=== PATIENT | male | born 1990 | race Caucasian/White ===

== ENCOUNTER 2017-10-11 05:29 | Emergency (ER) | payer MEDICAID ==
[~2017-10-11] VITALS: Ht 188 cm; Wt 100.0 kg
[~2017-10-11 05:29] MED LIST: DIVA-75 MT; GABA-531 MT; HYDR-4001 MT; LEVE750T4 MT; OLAN2.5T29 MT; SERT-112 MT; [UNRECOGNIZED DRUG - OTHER] PO
[2017-10-11] MEDS ORDERED: SODIUM CHLORIDE 0.9% 1,000 ML IV ONE (07:00)
[2017-10-11] MEDS ORDERED: KETOROLAC 30MG/ML VIAL IV ONE (07:00)
[2017-10-11 07:46] LABS: BASOPHILS % 0.8 % (0.0-2.0); EOSINOPHILS % 0.8 % (0.0-5.0); HEMATOCRIT. 40.6 % (42.0-52.0); HEMOGLOBIN. 13.8 g/dL (14.0-18.0); LYMPHOCYTES % 25.6 % (20.0-50.0); MEAN CORPUSCULAR HEMOGLOBIN 31.9 pg (28.0-32.0); MEAN CORPUSCULAR VOLUME 93.7 fL (80.0-94.0); MEAN PLATELET VOLUME 8.6 fl (7.4-10.4); MONOCYTES % 9.7 % (2.0-8.0); NEUTROPHILS % 63.1 % (40.0-76.0); PLATELET 448 x1000/uL (130-400); RED BLOOD CELL COUNT 4.33 mill/uL (4.7-6.1)
[2017-10-11 07:54] LABS: CHLORIDE 106 mEq/L (98-107)
[2017-10-11 09:15] LABS: CLARITY URINE CLOUDY (CLEAR); COLOR URINE DARK YELLOW (YELLOW); KETONES URINE TRACE (NEGATIVE); LEUKOCYTE ESTERASE URINE TRACE (NEGATIVE); NITRITE URINE NEGATIVE (NEGATIVE); OCCULT BLOOD URINE NEGATIVE (NEGATIVE); PH URINE 5.5 (4.5-8.0); PROTEIN URINE NEGATIVE (NEGATIVE); SPECIFIC GRAVITY URINE 1.026 (1.005-1.030)
[2017-10-11] MEDS ORDERED: ACETAMINOPHEN 325MG TABLET PO ONE (10:00)
[2017-10-11 10:18] VITALS: BP 121/77
== END 2017-10-11 10:20 | disposition home or self-care (01) ==
LOC: ER 05:29
DX: N39.0 Urinary tract infection, site not specified (principal); G40.909 Epilepsy, unspecified, not intractable, without status epilepticus; K75.9 Inflammatory liver disease, unspecified; H54.8 Legal blindness, as defined in USA; F12.90 Cannabis use, unspecified, uncomplicated; Z88.8 Allergy status to other drugs, medicaments and biological substances; Z79.899 Other long term (current) drug therapy
CPT/HCPCS: 36415; 74176; 80048; 81003; 85025; 96374; 99285; J1885; J7030; Z7610

== ENCOUNTER 2017-10-12 12:28 | Inpatient (IN) | payer MEDICAID ==
[~2017-10-12] VITALS: Ht 182.9 cm; Wt 93.0 kg
[2017-10-12] MEDS ORDERED: SODIUM CHLORIDE 0.9% 1,000 ML IV ONE (14:13)
[2017-10-12] MEDS ORDERED: ACETAMINOPHEN 325MG TABLET PO STA (14:13)
[2017-10-12] MEDS ORDERED: ONDANSETRON HCL 4MG/2ML INJ IV STA (14:13)
[2017-10-12] MEDS ORDERED: KETOROLAC 30MG/ML VIAL IV STA (14:13)
[2017-10-12] MEDS ORDERED: SODIUM CHLORIDE 0.9% 1000ML BAG (SEPSIS BOLUS) IV ONE (14:15)
[2017-10-12] MEDS ORDERED: PIPERACILLIN/TAZ 3.375G PREMIX 50 ML IV ONE (14:15)
[2017-10-12] MEDS ORDERED: VANCOMYCIN 1 G PREMIX 200 ML IV ONE (14:15)
[2017-10-12] MEDS ORDERED: KETOROLAC 30MG/ML VIAL IV ONE (15:15)
[2017-10-12 15:33] LABS: PROTHROMBIN TIME 10.2 sec (9.1-11.1)
[2017-10-12 15:34] LABS: CHLORIDE 107 mEq/L (98-107)
[2017-10-12 15:40] LABS: ETHANOL BLOOD < 10 mg/dL
[2017-10-12 15:43] LABS: CREATINE KINASE 317 IU/L (39-308)
[2017-10-12 15:48] LABS: AMMONIA 83 uMol/L (<32)
[2017-10-12 15:50] LABS: CARBAMAZEPINE < 0.5 ug/mL (4-12); PHENOBARBITAL < 2.1 ug/mL (15.0-40.0); VALPROIC ACID < 3.0 ug/mL (50-100)
[2017-10-12] MEDS ORDERED: LORAZEPAM 2MG/ML CPJ IV ONE (16:00)
[2017-10-12 18:45] LABS: CLARITY URINE TURBID (CLEAR); COLOR URINE DARK YELLOW (YELLOW); KETONES URINE TRACE (NEGATIVE); LEUKOCYTE ESTERASE URINE TRACE (NEGATIVE); NITRITE URINE NEGATIVE (NEGATIVE); OCCULT BLOOD URINE NEGATIVE (NEGATIVE); PROTEIN URINE TRACE (NEGATIVE); SPECIFIC GRAVITY URINE 1.031 (1.005-1.030)
[2017-10-12 18:59] LABS: *AMPHETAMINES SCREEN URINE NEGATIVE (NEGATIVE); *BARBITURATES SCREEN URINE NEGATIVE (NEGATIVE); *BENZODIAZEPINES SCREEN URINE NEGATIVE (NEGATIVE); *COCAINE SCREEN URINE NEGATIVE (NEGATIVE); METHADONE URINE SCREEN NEGATIVE (NEGATIVE); OPIATES URINE SCREEN NEGATIVE (NEGATIVE)
[2017-10-12 19:00] LABS: CANNABINOID URINE SCREEN PRESUMTIVE POSITIVE (NEGATIVE); PHENCYCLIDINE URINE SCREEN NEGATIVE (NEGATIVE)
[2017-10-12 22:00] VITALS: BP 116/72
[2017-10-12] MEDS ORDERED: CLONIDINE 0.1MG TABLET PO PRN (23:45)
[2017-10-12] MEDS ORDERED: ACETAMINOPHEN 325MG TABLET PO PRN (23:45)
[2017-10-12] MEDS ORDERED: MORPHINE SULFATE 4 MG/ML CPJ (NOT FOR IM USE) IV PRN (23:45)
[2017-10-12] MEDS ORDERED: ONDANSETRON HCL 4MG/2ML INJ IV PRN (23:45)
[2017-10-13] VITALS: BP 116/72
[2017-10-13] MEDS: SERTRALINE HCL 100MG TABLET PO SCH ×2 (01:03→20:45)
[2017-10-13] MEDS: SODIUM CHLORIDE 0.9% 1,000 ML IV SCH ×2 (01:03→13:05)
[2017-10-13] MEDS: VANCOMYCIN 1500MG in DEXTROSE 5% WATER 250ML IV SCH ×3 (02:56→18:05)
[2017-10-13] MEDS: OLANZAPINE 2.5MG TABLET PO SCH ×2 (02:56→20:43)
[2017-10-13] MEDS: GABAPENTIN 300MG CAPSULE PO SCH ×3 (05:11→21:02)
[2017-10-13] MEDS ORDERED: CLONIDINE 0.1MG TABLET PO PRN (05:45)
[2017-10-13] MEDS: HYDROCODONE/ACETAMINOPHEN 5/325MG TABLET PO PRN ×2 (06:06→18:01)
[2017-10-13 08:00] VITALS: BP 101/60
[2017-10-13] MEDS: LEVETIRACETAM 500MG TABLET PO SCH ×2 (08:57→20:43)
[2017-10-13] MEDS: ENOXAPARIN 40MG/0.4ML SYR SUBCUT SCH (08:59)
[2017-10-13] MEDS ORDERED: DIVALPROEX SODIUM 500MG DR TABLET PO SCH (09:00)
[2017-10-13 12:00] VITALS: BP 106/64
[2017-10-13 16:11] VITALS: BP 124/74
[2017-10-13] MEDS: DIVALPROEX SODIUM 500MG DR TABLET PO SCH (18:00)
[2017-10-13 18:07] LABS: BASOPHILS % 2.5 % (0.0-2.0); EOSINOPHILS % 3.6 % (0.0-5.0); HEMATOCRIT. 39.3 % (42.0-52.0); HEMOGLOBIN. 13.3 g/dL (14.0-18.0); LYMPHOCYTES % 36.1 % (20.0-50.0); MEAN CORPUSCULAR HEMOGLOBIN 32.1 pg (28.0-32.0); MEAN CORPUSCULAR VOLUME 94.6 fL (80.0-94.0); MEAN PLATELET VOLUME 8.8 fl (7.4-10.4); MONOCYTES % 14.7 % (2.0-8.0); NEUTROPHILS % 43.1 % (40.0-76.0); PLATELET 404 x1000/uL (130-400); RED BLOOD CELL COUNT 4.15 mill/uL (4.7-6.1); RED CELL DISTRIBUTION WIDTH 14.2 % (11.6-14.6)
[2017-10-13 18:16] LABS: CHLORIDE 111 mEq/L (98-107)
[2017-10-13 20:00] VITALS: BP 117/77
[2017-10-14] VITALS: BP 120/70
[2017-10-14 04:00] VITALS: BP 102/66
[2017-10-14] MEDS: VANCOMYCIN 1500MG in DEXTROSE 5% WATER 250ML IV SCH ×3 (04:01→18:29)
[2017-10-14] MEDS: SODIUM CHLORIDE 0.9% 1,000 ML IV SCH ×2 (04:04→15:45)
[2017-10-14] MEDS: GABAPENTIN 300MG CAPSULE PO SCH ×3 (05:56→21:43)
[2017-10-14 08:20] VITALS: BP 113/69
[2017-10-14] MEDS: LEVETIRACETAM 500MG TABLET PO SCH ×2 (09:03→21:43)
[2017-10-14] MEDS: DIVALPROEX SODIUM 500MG DR TABLET PO SCH ×2 (09:03→21:43)
[2017-10-14] MEDS: ENOXAPARIN 40MG/0.4ML SYR SUBCUT SCH (09:04)
[2017-10-14 12:03] VITALS: BP 113/67
[2017-10-14] MEDS: CEFEPIME 2,000 MG in DEXT 5% WATER 100 ML IV SCH ×2 (12:10→23:06)
[2017-10-14] MEDS: HYDROCODONE/ACETAMINOPHEN 5/325MG TABLET PO PRN ×2 (13:02→18:58)
[2017-10-14 16:09] VITALS: BP 105/73
[2017-10-14 20:00] VITALS: BP 113/88
[2017-10-14] MEDS: OLANZAPINE 2.5MG TABLET PO SCH (21:43)
[2017-10-14] MEDS: SERTRALINE HCL 100MG TABLET PO SCH (21:44)
[2017-10-15] VITALS: BP 117/79
[2017-10-15] MEDS: VANCOMYCIN 1500MG in DEXTROSE 5% WATER 250ML IV SCH ×3 (02:41→10:00)
[2017-10-15] MEDS: HYDROCODONE/ACETAMINOPHEN 5/325MG TABLET PO PRN (03:20)
[2017-10-15 04:00] VITALS: BP 104/63
[2017-10-15] MEDS: GABAPENTIN 300MG CAPSULE PO SCH ×3 (05:31→20:55)
[2017-10-15 08:00] VITALS: BP 114/72
[2017-10-15] MEDS: DIVALPROEX SODIUM 500MG DR TABLET PO SCH ×2 (09:02→20:57)
[2017-10-15] MEDS: LEVETIRACETAM 500MG TABLET PO SCH ×2 (09:02→20:55)
[2017-10-15] MEDS: ENOXAPARIN 40MG/0.4ML SYR SUBCUT SCH (09:03)
[2017-10-15 12:00] VITALS: BP 123/72
[2017-10-15] MEDS: CLINDAMYCIN HCL 150MG CAPSULE PO SCH ×2 (12:36→18:19)
[2017-10-15] MEDS: LEVOFLOXACIN 250MG TABLET PO SCH (12:36)
[2017-10-15] MEDS: SILVER SULFADIAZINE 1% CREAM 25GM TOP SCH (14:56)
[2017-10-15 16:00] VITALS: BP 132/76
[2017-10-15] MEDS ORDERED: DIPHENHYDRAMINE 50MG CAPSULE PO NR (19:45)
[2017-10-15 20:00] VITALS: BP 103/64
[2017-10-15] MEDS: SERTRALINE HCL 100MG TABLET PO SCH (20:56)
[2017-10-15] MEDS: FAMOTIDINE 20MG TABLET PO SCH (20:57)
[2017-10-15] MEDS: OLANZAPINE 2.5MG TABLET PO SCH (20:58)
[2017-10-15] MEDS: LACTULOSE 20G/30ML UDC PO SCH (20:59)
[2017-10-16] VITALS: BP 113/62
[2017-10-16 04:00] VITALS: BP 111/68
[2017-10-16] MEDS: GABAPENTIN 300MG CAPSULE PO SCH (06:25)
[2017-10-16] MEDS: CLINDAMYCIN HCL 150MG CAPSULE PO SCH ×3 (06:25→09:32)
[2017-10-16] MEDS: LACTULOSE 20G/30ML UDC PO SCH (06:25)
[2017-10-16 08:00] VITALS: BP 110/79
[2017-10-16] MEDS: ENOXAPARIN 40MG/0.4ML SYR SUBCUT SCH (09:00)
[2017-10-16] MEDS: DIVALPROEX SODIUM 500MG DR TABLET PO SCH (09:23)
[2017-10-16] MEDS: SILVER SULFADIAZINE 1% CREAM 25GM TOP SCH (09:23)
[2017-10-16] MEDS: FAMOTIDINE 20MG TABLET PO SCH (09:23)
[2017-10-16] MEDS: LEVETIRACETAM 500MG TABLET PO SCH (09:23)
[2017-10-16 10:34] LABS: BASOPHILS % 0.1 % (0.0-2.0); EOSINOPHILS % 1.1 % (0.0-5.0); HEMATOCRIT. 42.1 % (42.0-52.0); HEMOGLOBIN. 14.3 g/dL (14.0-18.0); LYMPHOCYTES % 13.4 % (20.0-50.0); MEAN CORPUSCULAR HEMOGLOBIN 32.2 pg (28.0-32.0); MEAN CORPUSCULAR VOLUME 94.6 fL (80.0-94.0); MEAN PLATELET VOLUME 8.8 fl (7.4-10.4); NEUTROPHILS % 81.4 % (40.0-76.0); PLATELET 383 x1000/uL (130-400); RED BLOOD CELL COUNT 4.45 mill/uL (4.7-6.1); RED CELL DISTRIBUTION WIDTH 13.9 % (11.6-14.6)
[2017-10-16 11:11] LABS: CHLORIDE 101 mEq/L (98-107)
[2017-10-16 12:00] VITALS: BP 120/86
[2017-10-16] MEDS: HYDROCODONE/ACETAMINOPHEN 5/325MG TABLET PO PRN (12:15)
[2017-10-16] MEDS: LEVOFLOXACIN 250MG TABLET PO SCH (12:15)
[2017-10-16 16:00] VITALS: BP 116/76
[2017-10-16 17:10] VITALS: BP 120/86
== END 2017-10-16 17:37 | disposition home health service (06) | DRG 720 ==
LOC: ER 12:58 → EDBEDREQ 14:18 → 8WST 16:07 → EDBEDREQSVC 16:10 → EDBEDREQ 16:10 → ENRESERV 19:41
PROVIDERS: ADMIT Internal Medicine; ATTEND Internal Medicine
DX: A41.9 Sepsis, unspecified organism (principal); L97.319 Non-pressure chronic ulcer of right ankle with unspecified severity; L03.115 Cellulitis of right lower limb; F12.90 Cannabis use, unspecified, uncomplicated; F17.210 Nicotine dependence, cigarettes, uncomplicated; G40.909 Epilepsy, unspecified, not intractable, without status epilepticus; R62.50 Unspecified lack of expected normal physiological development in childhood; I87.8 Other specified disorders of veins; Z82.49 Family history of ischemic heart disease and other diseases of the circulatory system; Z91.19 Patient's noncompliance with other medical treatment and regimen; Z88.9 Allergy status to unspecified drugs, medicaments and biological substances; Z91.14 Patient's other noncompliance with medication regimen
CPT/HCPCS: 36415; 71045; 73600; 80048; 80053; 80156; 80165; 80184; 80185; 80305; 81003; 82140; 82550; 83605; 84443; 84484; 85025; 85610; 87040; 87070; 87077; 87086; 87186; 87205; 93005; 96365; 96367; 96375; 97022; 97161; 99285; C1893; G0482; J0692; J1650; J1885; J2060; J2270; J2405; J2543; J3370; J7030; J7040; J7060; Q0163

== ENCOUNTER 2018-01-10 12:10 | Inpatient (IN) | payer MEDICAID ==
[~2018-01-10] VITALS: Ht 182.9 cm; Wt 83.9 kg
[2018-01-10] MEDS ORDERED: FAMOTIDINE 20MG/2ML VIAL IV STA (13:01)
[2018-01-10] MEDS ORDERED: SODIUM CHLORIDE 0.9% 1,000 ML IV ONE (13:01)
[2018-01-10] MEDS ORDERED: KETOROLAC 30MG/ML VIAL IV ONE (13:15)
[2018-01-10 13:30] LABS: BASOPHILS % 0.5 % (0.0-2.0); EOSINOPHILS % 0.2 % (0.0-5.0); HEMATOCRIT. 44.5 % (42.0-52.0); LYMPHOCYTES % 11.5 % (20.0-50.0); MEAN CORPUSCULAR HEMOGLOBIN 31.4 pg (28.0-32.0); MEAN PLATELET VOLUME 8.2 fl (7.4-10.4); MONOCYTES % 8.7 % (2.0-8.0); NEUTROPHILS % 79.1 % (40.0-76.0); PLATELET 481 x1000/uL (130-400); RED BLOOD CELL COUNT 4.79 mill/uL (4.7-6.1)
[2018-01-10 13:35] LABS: CHLORIDE 101 mEq/L (98-107)
[2018-01-10 13:36] LABS: PROTHROMBIN TIME 10.3 sec (9.1-11.1)
[2018-01-10] MEDS ORDERED: LORAZEPAM 2MG/ML CPJ IV ONE (13:45)
[2018-01-10] MEDS ORDERED: LORAZEPAM 2MG/ML CPJ IM ONE (14:00)
[2018-01-10] MEDS ORDERED: ONDANSETRON HCL 4MG/2ML INJ ONE (14:03)
[2018-01-10] MEDS ORDERED: SODIUM CHLORIDE 0.9% 1000ML BAG (SEPSIS BOLUS) IV ONE (15:30)
[2018-01-10] MEDS ORDERED: PIPERACILLIN/TAZ 3.375G PREMIX 50 ML IV ONE (16:00)
[2018-01-10 16:15] LABS: CLARITY URINE TURBID (CLEAR); COLOR URINE ORANGE (YELLOW); KETONES URINE TRACE (NEGATIVE); LEUKOCYTE ESTERASE URINE TRACE (NEGATIVE); NITRITE URINE NEGATIVE (NEGATIVE); OCCULT BLOOD URINE 3+ (NEGATIVE); PH URINE 5.5 (4.5-8.0); PROTEIN URINE 2+ (NEGATIVE); SPECIFIC GRAVITY URINE 1.012 (1.005-1.030); UROBILINOGEN URINE 0.2 E.U./dL (0.2-1.0)
[2018-01-10] MEDS ORDERED: LEVOFLOXACIN 500MG PREMIX 100 ML IV ONE (16:45)
[2018-01-10 22:25] VITALS: BP 103/64
[2018-01-10] MEDS ORDERED: MEDICATION NOT ON FORMULARY EA (Gabapentin 1 CAP) MT SCH (23:30)
[2018-01-10] MEDS ORDERED: ACETAMINOPHEN PO SCH (23:30)
[2018-01-11] VITALS: BP_SYST 110; BP_SYST 146; BP_DIAS 56; BP_DIAS 71
[2018-01-11] MEDS ORDERED: ACETAMINOPHEN 325MG TABLET PO PRN (00:45)
[2018-01-11] MEDS: HYDROCODONE/ACETAMINOPHEN 10/325MG TABLET PO PRN ×4 (01:27→22:49)
[2018-01-11] MEDS: METOCLOPRAMIDE HCL 10MG/2ML VIAL IV PRN ×3 (03:05→20:59)
[2018-01-11 04:00] VITALS: BP 121/62
[2018-01-11] MEDS: GABAPENTIN 300MG CAPSULE PO SCH ×3 (05:04→22:48)
[2018-01-11 08:00] VITALS: BP 117/66
[2018-01-11] MEDS: PIPERACILLIN/TAZ 3.375G PREMIX 50 ML IV SCH ×3 (08:16→17:56)
[2018-01-11] MEDS: LEVETIRACETAM 500MG TABLET PO SCH ×2 (08:16→22:48)
[2018-01-11] MEDS: DIVALPROEX SODIUM 250MG DR TABLET PO SCH ×2 (08:16→22:48)
[2018-01-11] MEDS: ALPRAZOLAM 0.5 MG TABLET PO PRN (08:16)
[2018-01-11] MEDS ORDERED: MEDICATION NOT ON FORMULARY EA (Levetiracetam (Keppra) 2 TAB) MT SCH (09:00)
[2018-01-11] MEDS ORDERED: VANCOMYCIN 1500MG in DEXTROSE 5% WATER 250ML IV SCH (09:00)
[2018-01-11] MEDS ORDERED: DIVALPROEX SODIUM MT SCH (09:00)
[2018-01-11 12:00] VITALS: BP 114/79
[2018-01-11] MEDS: ONDANSETRON HCL 4MG/2ML INJ IV PRN (13:45)
[2018-01-11 15:41] LABS: BASOPHILS % 0.6 % (0.0-2.0); EOSINOPHILS % 0.5 % (0.0-5.0); HEMATOCRIT. 41.4 % (42.0-52.0); HEMOGLOBIN. 13.7 g/dL (14.0-18.0); MEAN CORPUSCULAR HEMOGLOBIN 31.2 pg (28.0-32.0); MEAN CORPUSCULAR VOLUME 94.1 fL (80.0-94.0); MEAN PLATELET VOLUME 8.5 fl (7.4-10.4); MONOCYTES % 14.9 % (2.0-8.0); PLATELET 441 x1000/uL (130-400); RED CELL DISTRIBUTION WIDTH 15.6 % (11.6-14.6)
[2018-01-11 16:00] VITALS: BP 106/84
[2018-01-11] MEDS ORDERED: VANCOMYCIN 1250MG in DEXTROSE 5% WATER 250ML IV SCH (18:00)
[2018-01-11 20:00] VITALS: BP 128/80
[2018-01-11] MEDS ORDERED: OLANZAPINE MT SCH (21:00)
[2018-01-11] MEDS: OLANZAPINE 5MG TABLET PO SCH (22:48)
[2018-01-11] MEDS: SERTRALINE HCL 100MG TABLET PO SCH (22:54)
[2018-01-12] VITALS: BP 119/71
[2018-01-12] MEDS: PIPERACILLIN/TAZ 3.375G PREMIX 50 ML IV SCH ×4 (01:28→17:14)
[2018-01-12 04:00] VITALS: BP 122/71
[2018-01-12 06:58] LABS: BASOPHILS % 0.2 % (0.0-2.0); EOSINOPHILS % 1.1 % (0.0-5.0); HEMATOCRIT. 39.6 % (42.0-52.0); HEMOGLOBIN. 12.9 g/dL (14.0-18.0); LYMPHOCYTES % 28.8 % (20.0-50.0); MEAN CORPUSCULAR HEMOGLOBIN 30.9 pg (28.0-32.0); MEAN CORPUSCULAR VOLUME 95.1 fL (80.0-94.0); MONOCYTES % 14.1 % (2.0-8.0); NEUTROPHILS % 55.8 % (40.0-76.0); RED BLOOD CELL COUNT 4.16 mill/uL (4.7-6.1); RED CELL DISTRIBUTION WIDTH 15.5 % (11.6-14.6)
[2018-01-12] MEDS: GABAPENTIN 300MG CAPSULE PO SCH ×3 (07:14→23:02)
[2018-01-12 08:00] VITALS: BP 112/82
[2018-01-12] MEDS: DIVALPROEX SODIUM 250MG DR TABLET PO SCH ×2 (08:47→23:02)
[2018-01-12] MEDS: METOCLOPRAMIDE HCL 10MG/2ML VIAL IV PRN ×2 (08:47→15:48)
[2018-01-12] MEDS: LEVETIRACETAM 500MG TABLET PO SCH ×2 (08:47→23:02)
[2018-01-12 09:48] LABS: MEAN PLATELET VOLUME 9.1 fl (7.4-10.4); PLATELET 364 x1000/uL (130-400)
[2018-01-12 12:00] VITALS: BP 115/73
[2018-01-12] MEDS: ONDANSETRON HCL 4MG/2ML INJ IV PRN (12:13)
[2018-01-12 16:00] VITALS: BP 145/93
[2018-01-12] MEDS: DOCUSATE SODIUM 250MG CAPSULE PO SCH (17:14)
[2018-01-12 20:00] VITALS: BP 119/78
[2018-01-12] MEDS ORDERED: DEXT 5%/0.45% NACL 1000ML 1,000 ML IV SCH (20:30)
[2018-01-12] MEDS: OLANZAPINE 5MG TABLET PO SCH (23:02)
[2018-01-12] MEDS: SERTRALINE HCL 100MG TABLET PO SCH (23:03)
[2018-01-12] MEDS: HYDROCODONE/ACETAMINOPHEN 10/325MG TABLET PO PRN (23:04)
[2018-01-13] VITALS: BP 98/71
[2018-01-13] MEDS: PIPERACILLIN/TAZ 3.375G PREMIX 50 ML IV SCH
[2018-01-13 04:00] VITALS: BP 106/67
[2018-01-13] MEDS: GABAPENTIN 300MG CAPSULE PO SCH ×3 (06:33→21:00)
[2018-01-13 08:00] VITALS: BP 126/75
[2018-01-13] MEDS: DOCUSATE SODIUM 250MG CAPSULE PO SCH ×2 (09:17→17:29)
[2018-01-13 10:04] LABS: BASOPHILS % 0.8 % (0.0-2.0); EOSINOPHILS % 0.8 % (0.0-5.0); HEMATOCRIT. 42.8 % (42.0-52.0); HEMOGLOBIN. 14.1 g/dL (14.0-18.0); LYMPHOCYTES % 32.9 % (20.0-50.0); MEAN CORPUSCULAR VOLUME 93.9 fL (80.0-94.0); MEAN PLATELET VOLUME 8.7 fl (7.4-10.4); MONOCYTES % 14.4 % (2.0-8.0); NEUTROPHILS % 51.1 % (40.0-76.0); PLATELET 342 x1000/uL (130-400); RED BLOOD CELL COUNT 4.55 mill/uL (4.7-6.1); RED CELL DISTRIBUTION WIDTH 15.6 % (11.6-14.6)
[2018-01-13] MEDS: LEVETIRACETAM 500MG TABLET PO SCH ×2 (10:34→20:56)
[2018-01-13] MEDS: DIVALPROEX SODIUM 250MG DR TABLET PO SCH ×2 (10:34→20:57)
[2018-01-13 12:00] VITALS: BP 133/95
[2018-01-13] MEDS ORDERED: MEROPENEM 1,000 MG in SODIUM CHLORIDE 0.9% 100 ML IV SCH (15:00)
[2018-01-13 16:00] VITALS: BP 139/82
[2018-01-13 20:00] VITALS: BP 110/60
[2018-01-13] MEDS: SERTRALINE HCL 100MG TABLET PO SCH (20:56)
[2018-01-13] MEDS: OLANZAPINE 5MG TABLET PO SCH (20:57)
[2018-01-13] MEDS: ALPRAZOLAM 0.5 MG TABLET PO PRN (20:57)
[2018-01-14] VITALS: BP 108/77
[2018-01-14] MEDS: GABAPENTIN 300MG CAPSULE PO SCH ×3 (06:01→21:37)
[2018-01-14 08:00] VITALS: BP 120/73
[2018-01-14] MEDS: LEVETIRACETAM 500MG TABLET PO SCH ×2 (08:48→21:36)
[2018-01-14] MEDS: DOCUSATE SODIUM 250MG CAPSULE PO SCH ×2 (08:48→18:19)
[2018-01-14] MEDS: DIVALPROEX SODIUM 250MG DR TABLET PO SCH ×2 (09:20→21:36)
[2018-01-14 12:00] VITALS: BP 142/85
[2018-01-14 16:00] VITALS: BP 141/75
[2018-01-14 18:36] LABS: BASOPHILS % 1.4 % (0.0-2.0); EOSINOPHILS % 1.1 % (0.0-5.0); HEMATOCRIT. 42.5 % (42.0-52.0); HEMOGLOBIN. 14.2 g/dL (14.0-18.0); LYMPHOCYTES % 45.2 % (20.0-50.0); MEAN CORPUSCULAR HEMOGLOBIN 31.9 pg (28.0-32.0); MEAN CORPUSCULAR VOLUME 95.4 fL (80.0-94.0); MEAN PLATELET VOLUME 9.2 fl (7.4-10.4); MONOCYTES % 12.1 % (2.0-8.0); NEUTROPHILS % 40.2 % (40.0-76.0); PLATELET 295 x1000/uL (130-400); RED BLOOD CELL COUNT 4.46 mill/uL (4.7-6.1); RED CELL DISTRIBUTION WIDTH 15.3 % (11.6-14.6)
[2018-01-14 20:00] VITALS: BP 121/84
[2018-01-14] MEDS: SERTRALINE HCL 100MG TABLET PO SCH (21:36)
[2018-01-14] MEDS: OLANZAPINE 5MG TABLET PO SCH (21:37)
[2018-01-14] MEDS: HYDROCODONE/ACETAMINOPHEN 10/325MG TABLET PO PRN (22:52)
[2018-01-15] VITALS: BP 117/81
[2018-01-15 04:00] VITALS: BP 97/58
[2018-01-15 08:00] VITALS: BP 133/91
[2018-01-15] MEDS: DOCUSATE SODIUM 250MG CAPSULE PO SCH (09:07)
[2018-01-15] MEDS: DIVALPROEX SODIUM 250MG DR TABLET PO SCH (09:08)
[2018-01-15] MEDS: LEVETIRACETAM 500MG TABLET PO SCH (09:08)
[2018-01-15 12:00] VITALS: BP 126/97
[2018-01-15] MEDS: GABAPENTIN 300MG CAPSULE PO SCH (13:04)
[2018-01-15] MEDS: HYDROCODONE/ACETAMINOPHEN 10/325MG TABLET PO PRN (13:32)
[2018-01-15 13:36] LABS: CHLORIDE 102 mEq/L (98-107)
[2018-01-15 14:45] VITALS: BP 123/97
[2018-01-15 16:00] VITALS: BP 138/97
== END 2018-01-15 19:15 | disposition home or self-care (01) | DRG 720 ==
LOC: ER 12:10 → EDBEDREQ 13:45 → 6EST 16:13 → EDBEDREQTM 16:15 → EDBEDREQ 16:15 → ENRESERV 20:38
PROVIDERS: ADMIT Internal Medicine; ATTEND Internal Medicine
DX: A41.9 Sepsis, unspecified organism (principal); N17.0 Acute kidney failure with tubular necrosis; A04.9 Bacterial intestinal infection, unspecified; F32.9 Major depressive disorder, single episode, unspecified; G40.909 Epilepsy, unspecified, not intractable, without status epilepticus; N39.0 Urinary tract infection, site not specified; F12.90 Cannabis use, unspecified, uncomplicated; Z66 Do not resuscitate; Z82.49 Family history of ischemic heart disease and other diseases of the circulatory system; Z79.899 Other long term (current) drug therapy; Z53.20 Procedure and treatment not carried out because of patient's decision for unspecified reasons; Z88.8 Allergy status to other drugs, medicaments and biological substances
CPT/HCPCS: 36415; 71045; 74176; 80048; 82962; 83605; 87077; 87186; 96365; 96366; 96367; 96372; 96375; 99291; J1885; J1956; J2060; J2185; J2405; J2543; J2765; J3370; J3490; J7030; J7040; J7050; J7060

== ENCOUNTER 2019-04-05 19:08 | Emergency (ER) | payer MEDICAID ==
[~2019-04-05] VITALS: Ht 188 cm; Wt 96.0 kg
[2019-04-05] MEDS ORDERED: HYDROCODONE/ACETAMINOPHEN 5/325MG TABLET PO ONE (19:45)
[2019-04-05] MEDS ORDERED: IBUPROFEN 800MG TABLET PO ONE (19:45)
[2019-04-05] MEDS ORDERED: CARISOPRODOL 350 MG TABLET PO ONE (20:00)
[2019-04-06 01:13] VITALS: BP 121/84
== END 2019-04-06 01:18 | disposition home or self-care (01) ==
LOC: ER 19:08
DX: S80.12XA Contusion of left lower leg, initial encounter (principal); F12.10 Cannabis abuse, uncomplicated; Z98.890 Other specified postprocedural states; Z88.8 Allergy status to other drugs, medicaments and biological substances; Z79.899 Other long term (current) drug therapy; V89.2XXA Person injured in unspecified motor-vehicle accident, traffic, initial encounter; Y93.89 Activity, other specified; Y92.89 Other specified places as the place of occurrence of the external cause; Y99.8 Other external cause status
CPT/HCPCS: 73590; 99284

== ENCOUNTER 2020-07-27 19:44 | Emergency (ER) | payer MEDICAID ==
[~2020-07-27] VITALS: Ht 188 cm; Wt 100.0 kg
[~2020-07-27 19:44] MED LIST changes: -GABA-531 MT; +GABA-532 MT
[2020-07-27 19:46] VITALS: BP 127/71
== END 2020-07-28 01:53 | disposition left against medical advice (07) ==
LOC: ER 19:53
DX: S81.801A Unspecified open wound, right lower leg, initial encounter (principal); M79.604 Pain in right leg; Z88.8 Allergy status to other drugs, medicaments and biological substances; X58.XXXA Exposure to other specified factors, initial encounter; Y93.9 Activity, unspecified; Y92.9 Unspecified place or not applicable; R56.9 Unspecified convulsions
CPT/HCPCS: 99283

== ENCOUNTER 2020-07-28 02:05 | Emergency (ER) | payer MEDICAID ==
[~2020-07-28] VITALS: Ht 182.9 cm; Wt 90.0 kg
[2020-07-28 02:08] VITALS: BP 125/80
== END 2020-07-28 04:33 | disposition left against medical advice (07) ==
LOC: ER 02:16
DX: M79.671 Pain in right foot (principal); R56.9 Unspecified convulsions; Z88.8 Allergy status to other drugs, medicaments and biological substances
CPT/HCPCS: 99283

== ENCOUNTER 2020-10-09 04:49 | Emergency (ER) | payer MEDICAID ==
[~2020-10-09] VITALS: Ht 188 cm; Wt 104.0 kg
[2020-10-09 04:52] VITALS: BP 136/86
[2020-10-09] MEDS ORDERED: TOPUD PO (05:43)
== END 2020-10-09 05:52 | disposition left against medical advice (07) ==
LOC: ER 04:49
DX: M79.605 Pain in left leg (principal); R56.9 Unspecified convulsions; Z88.8 Allergy status to other drugs, medicaments and biological substances
CPT/HCPCS: 99283

== ENCOUNTER 2020-10-09 06:39 | Emergency (ER) | payer MEDICAID ==
[~2020-10-09] VITALS: Ht 180.3 cm; Wt 104.0 kg
[~2020-10-09 06:39] MED LIST changes: +TOPUD PO
[2020-10-09 06:44] VITALS: BP 138/88
== END 2020-10-09 07:09 | disposition left against medical advice (07) ==
LOC: ER 06:39
DX: M79.662 Pain in left lower leg (principal); M79.661 Pain in right lower leg; R56.9 Unspecified convulsions; Z88.8 Allergy status to other drugs, medicaments and biological substances
CPT/HCPCS: 99281; 99283

== ENCOUNTER 2020-12-06 13:09 | Emergency (ER) | payer MEDICAID ==
[~2020-12-06] VITALS: Ht 182.9 cm; Wt 95.0 kg
[2020-12-06] MEDS ORDERED: IBUPROFEN 800MG TABLET PO ONE (13:15)
[2020-12-06] MEDS ORDERED: ACETAMINOPHEN 500MG TABLET PO ONE (13:15)
[2020-12-06] MEDS ORDERED: T3 PO (14:29)
[2020-12-06 14:44] VITALS: BP 135/66
== END 2020-12-06 14:47 | disposition home or self-care (01) ==
LOC: ER 13:09
DX: S63.91XA Sprain of unspecified part of right wrist and hand, initial encounter (principal); F12.10 Cannabis abuse, uncomplicated; Z88.8 Allergy status to other drugs, medicaments and biological substances; W01.0XXA Fall on same level from slipping, tripping and stumbling without subsequent striking against object, initial encounter; Y93.89 Activity, other specified; Y92.018 Other place in single-family (private) house as the place of occurrence of the external cause
CPT/HCPCS: 29125; 73110; 73130; 99284

== ENCOUNTER 2020-12-10 19:35 | Inpatient (IN) | payer MEDICAID, OTHER ==
[~2020-12-10] VITALS: Ht 188 cm; Wt 124.9 kg
[~2020-12-10 19:35] MED LIST changes: +T3 PO
[2020-12-10] MEDS ORDERED: PIPERACILLIN/TAZ 3.375G PREMIX 50 ML IV ONE (23:15)
[2020-12-10] MEDS ORDERED: SODIUM CHLORIDE 0.9% 1000ML BAG (SEPSIS BOLUS) IV ONE (23:15)
[2020-12-10] MEDS ORDERED: VANCOMYCIN 1 G PREMIX 200 ML IV ONE (23:15)
[2020-12-10] MEDS ORDERED: KETOROLAC 15MG/ML VIAL IV ONE (23:45)
[2020-12-11 00:07] LABS: BASOPHILS % 0.9 % (0.0-2.0); EOSINOPHILS % 4.2 % (0.0-5.0); HEMATOCRIT. 34.8 % (42.0-52.0); HEMOGLOBIN. 11.7 g/dL (14.0-18.0); LYMPHOCYTES % 46.8 % (20.0-50.0); MEAN CORPUSCULAR HEMOGLOBIN 32.1 pg (28.0-32.0); MEAN CORPUSCULAR VOLUME 95.6 fL (80.0-94.0); MEAN PLATELET VOLUME 8.1 fl (7.4-10.4); MONOCYTES % 12.3 % (2.0-8.0); NEUTROPHILS % 35.8 % (40.0-76.0); PLATELET 472 x1000/uL (130-400); RED BLOOD CELL COUNT 3.64 mill/uL (4.7-6.1); RED CELL DISTRIBUTION WIDTH 16.2 % (11.6-14.6)
[2020-12-11 00:13] LABS: CHLORIDE 114 mEq/L (98-107)
[2020-12-11 00:18] LABS: ETHANOL BLOOD < 10 mg/dL
[2020-12-11] MEDS ORDERED: ONDANSETRON HCL 4MG/2ML INJ IV STA (02:34)
[2020-12-11] MEDS ORDERED: MORPHINE SULFATE 4 MG/ML CPJ (NOT FOR IM USE) IV STA (02:34)
[2020-12-11] MEDS ORDERED: SODIUM CHLORIDE 0.9% 1,000 ML IV ONE (02:45)
[2020-12-11] MEDS ORDERED: DIPHENHYDRAMINE 50MG/ML VIAL IV ONE (02:45)
[2020-12-11] MEDS ORDERED: MORPHINE SULFATE 2 MG/ML CPJ (NOT FOR IM USE) IV STA (03:08)
[2020-12-11 08:00] VITALS: BP 121/74
[2020-12-11] MEDS ORDERED: IPRATROPIUM/ALBUTEROL 0.5-3(2.5)MG/3ML NEB HHN PRN (09:15)
[2020-12-11] MEDS ORDERED: ONDANSETRON HCL 4MG/2ML INJ IV PRN (09:15)
[2020-12-11] MEDS ORDERED: ACETAMINOPHEN 325MG TABLET PO PRN (09:15)
[2020-12-11] MEDS ORDERED: CLONIDINE 0.1MG TABLET PO PRN (09:15)
[2020-12-11] MEDS ORDERED: NALOXONE HCL 0.4MG/ML VIAL IV PRN (09:30)
[2020-12-11] MEDS ORDERED: PIPERACILLIN/TAZOBACTAM 3.375 G in DEXTROSE 5% WATER 50 ML IV SCH (09:30)
[2020-12-11 09:51] VITALS: BP 121/74
[2020-12-11] MEDS ORDERED: VANCOMYCIN 1500MG in DEXTROSE 5% WATER 250ML IV NR (10:00)
[2020-12-11] MEDS: MORPHINE SULFATE 2 MG/ML CPJ (NOT FOR IM USE) IV PRN ×3 (11:15→22:22)
[2020-12-11 12:00] VITALS: BP 111/66
[2020-12-11] MEDS: PIPERACILLIN/TAZOBACTAM 3.375 G in DEXTROSE 5% WATER 50 ML IV SCH ×2 (15:34→21:01)
[2020-12-11] MEDS: GABAPENTIN 300MG CAPSULE PO SCH ×2 (15:34→21:01)
[2020-12-11 16:00] VITALS: BP 107/80
[2020-12-11] MEDS: DIVALPROEX SODIUM 500MG DR TABLET PO SCH (17:56)
[2020-12-11] MEDS ORDERED: VANCOMYCIN 1 G PREMIX 200 ML IV SCH ×2 (18:00→22:00)
[2020-12-11 20:00] VITALS: BP 130/76
[2020-12-11] MEDS: LEVETIRACETAM 250MG TABLET PO SCH (21:00)
[2020-12-11] MEDS: SERTRALINE HCL 100MG TABLET PO SCH (21:01)
[2020-12-11] MEDS: OLANZAPINE 5MG TABLET PO SCH (21:01)
[2020-12-11] MEDS: VANCOMYCIN 1 G PREMIX 200 ML IV SCH (23:30)
[2020-12-12] VITALS: BP 129/78
[2020-12-12 04:00] VITALS: BP 125/59
[2020-12-12] MEDS: PIPERACILLIN/TAZOBACTAM 3.375 G in DEXTROSE 5% WATER 50 ML IV SCH ×3 (05:07→21:25)
[2020-12-12 06:49] LABS: CHLORIDE 107 mEq/L (98-107)
[2020-12-12 07:03] LABS: LDL CHOLESTEROL 117 mg/dL (5-100)
[2020-12-12 07:06] LABS: HDL CHOLESTEROL 27 mg/dL (40-59)
[2020-12-12 07:14] LABS: BASOPHILS % 0.5 % (0.0-2.0); EOSINOPHILS % 7.7 % (0.0-5.0); HEMATOCRIT. 36.7 % (42.0-52.0); HEMOGLOBIN. 12.2 g/dL (14.0-18.0); LYMPHOCYTES % 26.8 % (20.0-50.0); MEAN CORPUSCULAR HEMOGLOBIN 31.8 pg (28.0-32.0); MEAN CORPUSCULAR VOLUME 95.9 fL (80.0-94.0); MEAN PLATELET VOLUME 9.6 fl (7.4-10.4); MONOCYTES % 8.8 % (2.0-8.0); NEUTROPHILS % 56.2 % (40.0-76.0); PLATELET 391 x1000/uL (130-400); RED BLOOD CELL COUNT 3.82 mill/uL (4.7-6.1); RED CELL DISTRIBUTION WIDTH 15.9 % (11.6-14.6)
[2020-12-12 08:00] VITALS: BP 113/63
[2020-12-12] MEDS: GABAPENTIN 300MG CAPSULE PO SCH ×3 (08:43→17:59)
[2020-12-12] MEDS: VANCOMYCIN 1 G PREMIX 200 ML IV SCH ×3 (08:43→23:13)
[2020-12-12] MEDS: DIVALPROEX SODIUM 500MG DR TABLET PO SCH ×2 (08:43→17:59)
[2020-12-12] MEDS: LEVETIRACETAM 250MG TABLET PO SCH ×2 (10:29→21:18)
[2020-12-12 12:00] VITALS: BP 117/70
[2020-12-12 16:00] VITALS: BP 104/62
[2020-12-12 20:00] VITALS: BP 130/73
[2020-12-12] MEDS: SERTRALINE HCL 100MG TABLET PO SCH (21:19)
[2020-12-12] MEDS: OLANZAPINE 5MG TABLET PO SCH (21:19)
[2020-12-12] MEDS: HYDROCODONE/ACETAMINOPHEN 5/325MG TABLET PO PRN (23:38)
[2020-12-13] VITALS: BP 117/82
[2020-12-13 04:00] VITALS: BP 110/53
[2020-12-13] MEDS ORDERED: HALOPERIDOL LACTATE 5MG/ML VIAL IM PRN (04:30)
[2020-12-13] MEDS: HYDROCODONE/ACETAMINOPHEN 5/325MG TABLET PO PRN ×2 (04:42→14:39)
[2020-12-13] MEDS: PIPERACILLIN/TAZOBACTAM 3.375 G in DEXTROSE 5% WATER 50 ML IV SCH ×3 (05:17→22:25)
[2020-12-13] MEDS: VANCOMYCIN 1 G PREMIX 200 ML IV SCH ×2 (07:56→16:02)
[2020-12-13 08:00] VITALS: BP 107/66
[2020-12-13] MEDS: GABAPENTIN 300MG CAPSULE PO SCH ×3 (09:05→17:39)
[2020-12-13] MEDS: DIVALPROEX SODIUM 500MG DR TABLET PO SCH ×2 (09:05→17:39)
[2020-12-13] MEDS: LEVETIRACETAM 250MG TABLET PO SCH ×2 (09:09→22:03)
[2020-12-13] MEDS ORDERED: AMOX1TAB16 MT (11:22)
[2020-12-13] MEDS ORDERED: CIPR500S4 PO (11:22)
[2020-12-13] MEDS ORDERED: SULF-13 MT (11:22)
[2020-12-13] MEDS ORDERED: CA C1TAB90 PO (11:22)
[2020-12-13 12:00] VITALS: BP 119/67
[2020-12-13] MEDS ORDERED: LIDOCAINE HCL 1% 10 MG/ML 10ML VIAL ONE (13:14)
[2020-12-13 16:00] VITALS: BP 104/54
[2020-12-13] MEDS: DIPHENHYDRAMINE 50MG/ML VIAL IV PRN (17:40)
[2020-12-13 20:00] VITALS: BP 140/80
[2020-12-13] MEDS: OLANZAPINE 5MG TABLET PO SCH (21:54)
[2020-12-13] MEDS: SERTRALINE HCL 100MG TABLET PO SCH (21:54)
[2020-12-13] MEDS: MORPHINE SULFATE 2 MG/ML CPJ (NOT FOR IM USE) IV PRN (22:10)
[2020-12-14] VITALS: BP 119/52
[2020-12-14] MEDS: VANCOMYCIN 1 G PREMIX 200 ML IV SCH ×3 (01:53→21:26)
[2020-12-14 04:00] VITALS: BP 113/51
[2020-12-14] MEDS: PIPERACILLIN/TAZOBACTAM 3.375 G in DEXTROSE 5% WATER 50 ML IV SCH ×2 (05:43→18:32)
[2020-12-14] MEDS: MORPHINE SULFATE 2 MG/ML CPJ (NOT FOR IM USE) IV PRN ×4 (05:46→21:27)
[2020-12-14 07:16] LABS: HEMATOCRIT. 38.9 % (42.0-52.0); HEMOGLOBIN. 12.9 g/dL (14.0-18.0); MEAN CORPUSCULAR HEMOGLOBIN 31.8 pg (28.0-32.0); MEAN CORPUSCULAR VOLUME 95.5 fL (80.0-94.0); MEAN PLATELET VOLUME 8.7 fl (7.4-10.4); PLATELET 414 x1000/uL (130-400); RED BLOOD CELL COUNT 4.07 mill/uL (4.7-6.1); RED CELL DISTRIBUTION WIDTH 15.7 % (11.6-14.6)
[2020-12-14 07:40] LABS: CHLORIDE 103 mEq/L (98-107)
[2020-12-14 08:00] VITALS: BP 100/71
[2020-12-14] MEDS: LEVETIRACETAM 250MG TABLET PO SCH ×2 (10:02→21:34)
[2020-12-14] MEDS: GABAPENTIN 300MG CAPSULE PO SCH ×3 (10:03→18:31)
[2020-12-14] MEDS: DIVALPROEX SODIUM 500MG DR TABLET PO SCH ×2 (10:04→18:33)
[2020-12-14 20:00] VITALS: BP 136/76
[2020-12-14 20:33] LABS: PLATELET ESTIMATE SLIGHTLY INCREASED
[2020-12-14] MEDS: SERTRALINE HCL 100MG TABLET PO SCH (21:24)
[2020-12-14] MEDS: OLANZAPINE 5MG TABLET PO SCH (21:24)
[2020-12-14] MEDS: DIPHENHYDRAMINE 50MG/ML VIAL IV PRN (22:35)
[2020-12-15] VITALS: BP 132/85
[2020-12-15] MEDS: PIPERACILLIN/TAZOBACTAM 3.375 G in DEXTROSE 5% WATER 50 ML IV SCH ×4 (00:16→21:29)
[2020-12-15] MEDS: MORPHINE SULFATE 2 MG/ML CPJ (NOT FOR IM USE) IV PRN ×4 (02:09→20:27)
[2020-12-15 04:00] VITALS: BP 121/71
[2020-12-15 08:00] VITALS: BP 112/57
[2020-12-15] MEDS: GABAPENTIN 300MG CAPSULE PO SCH ×3 (09:40→17:15)
[2020-12-15] MEDS: DIVALPROEX SODIUM 500MG DR TABLET PO SCH ×2 (09:40→17:15)
[2020-12-15] MEDS: LEVETIRACETAM 250MG TABLET PO SCH ×2 (09:44→21:29)
[2020-12-15 12:00] VITALS: BP 147/81
[2020-12-15] MEDS: VANCOMYCIN 1 G PREMIX 200 ML IV SCH (14:35)
[2020-12-15 16:00] VITALS: BP 131/76
[2020-12-15 20:00] VITALS: BP 130/88
[2020-12-15] MEDS: OLANZAPINE 5MG TABLET PO SCH (21:29)
[2020-12-15] MEDS: SERTRALINE HCL 100MG TABLET PO SCH (21:29)
[2020-12-16] VITALS: BP 104/74
[2020-12-16] MEDS: VANCOMYCIN 1 G PREMIX 200 ML IV SCH ×3 (00:59→18:26)
[2020-12-16 04:00] VITALS: BP 109/62
[2020-12-16] MEDS: PIPERACILLIN/TAZOBACTAM 3.375 G in DEXTROSE 5% WATER 50 ML IV SCH ×3 (05:18→21:33)
[2020-12-16 08:00] VITALS: BP 131/80
[2020-12-16] MEDS: LEVETIRACETAM 250MG TABLET PO SCH ×2 (09:24→21:33)
[2020-12-16] MEDS: HYDROCODONE/ACETAMINOPHEN 5/325MG TABLET PO PRN (09:24)
[2020-12-16] MEDS: GABAPENTIN 300MG CAPSULE PO SCH ×3 (09:24→18:27)
[2020-12-16] MEDS: DIVALPROEX SODIUM 500MG DR TABLET PO SCH ×2 (09:31→18:26)
[2020-12-16 12:00] VITALS: BP 124/72
[2020-12-16] MEDS ORDERED: HYDROCODONE/ACETAMINOPHEN 10/325MG TABLET PO PRN (15:30)
[2020-12-16] MEDS: MORPHINE SULFATE 2 MG/ML CPJ (NOT FOR IM USE) IV PRN ×2 (15:38→20:32)
[2020-12-16 16:00] VITALS: BP 124/93
[2020-12-16 20:00] VITALS: BP 141/86
[2020-12-16] MEDS: OLANZAPINE 5MG TABLET PO SCH (21:32)
[2020-12-16] MEDS: SERTRALINE HCL 100MG TABLET PO SCH (21:33)
[2020-12-17] VITALS: BP 125/88
[2020-12-17 04:00] VITALS: BP 103/60
[2020-12-17 08:00] VITALS: BP 108/64
[2020-12-17] MEDS: GABAPENTIN 300MG CAPSULE PO SCH ×3 (08:31→16:15)
[2020-12-17] MEDS: DIVALPROEX SODIUM 500MG DR TABLET PO SCH ×2 (08:31→16:15)
[2020-12-17] MEDS: LEVETIRACETAM 250MG TABLET PO SCH ×2 (08:32→20:57)
[2020-12-17] MEDS: MORPHINE SULFATE 2 MG/ML CPJ (NOT FOR IM USE) IV PRN ×3 (08:45→20:57)
[2020-12-17 15:26] VITALS: BP 122/76
[2020-12-17 20:00] VITALS: BP 137/97
[2020-12-17] MEDS: SERTRALINE HCL 100MG TABLET PO SCH (20:57)
[2020-12-17] MEDS: OLANZAPINE 5MG TABLET PO SCH (20:57)
[2020-12-18] VITALS: BP 123/78
[2020-12-18] MEDS: MORPHINE SULFATE 2 MG/ML CPJ (NOT FOR IM USE) IV PRN ×4 (00:59→22:14)
[2020-12-18 04:00] VITALS: BP 127/79
[2020-12-18 08:00] VITALS: BP 124/76
[2020-12-18] MEDS: DIVALPROEX SODIUM 500MG DR TABLET PO SCH ×2 (09:01→17:48)
[2020-12-18] MEDS: GABAPENTIN 300MG CAPSULE PO SCH ×3 (09:01→17:48)
[2020-12-18] MEDS: LEVETIRACETAM 250MG TABLET PO SCH ×2 (09:01→22:12)
[2020-12-18 12:00] VITALS: BP 111/64
[2020-12-18 16:00] VITALS: BP 102/58
[2020-12-18 20:00] VITALS: BP 140/58
[2020-12-18] MEDS: OLANZAPINE 5MG TABLET PO SCH (22:12)
[2020-12-18] MEDS: SERTRALINE HCL 100MG TABLET PO SCH (22:13)
[2020-12-19] VITALS: BP 135/65
[2020-12-19 04:00] VITALS: BP 126/75
[2020-12-19 08:13] VITALS: BP 102/74
[2020-12-19] MEDS: GABAPENTIN 300MG CAPSULE PO SCH ×3 (09:34→17:21)
[2020-12-19] MEDS: LEVETIRACETAM 250MG TABLET PO SCH ×2 (09:34→21:38)
[2020-12-19] MEDS: DIVALPROEX SODIUM 500MG DR TABLET PO SCH ×2 (09:35→17:21)
[2020-12-19] MEDS: MORPHINE SULFATE 2 MG/ML CPJ (NOT FOR IM USE) IV PRN ×3 (09:36→19:00)
[2020-12-19 12:00] VITALS: BP 125/86
[2020-12-19 16:00] VITALS: BP 122/73
[2020-12-19 20:00] VITALS: BP 147/86
[2020-12-19] MEDS: OLANZAPINE 5MG TABLET PO SCH (21:28)
[2020-12-19] MEDS: SERTRALINE HCL 100MG TABLET PO SCH (21:39)
[2020-12-20] MEDS: MORPHINE SULFATE 2 MG/ML CPJ (NOT FOR IM USE) IV PRN ×4 (00:09→22:24)
[2020-12-20 08:00] VITALS: BP 108/66
[2020-12-20] MEDS: GABAPENTIN 300MG CAPSULE PO SCH ×3 (09:29→17:34)
[2020-12-20] MEDS: LEVETIRACETAM 250MG TABLET PO SCH ×2 (09:29→20:57)
[2020-12-20] MEDS: DIVALPROEX SODIUM 500MG DR TABLET PO SCH ×2 (09:30→17:34)
[2020-12-20 12:00] VITALS: BP 133/80
[2020-12-20 16:00] VITALS: BP 132/89
[2020-12-20] MEDS ORDERED: DIPHENHYDRAMINE 50MG/ML VIAL IV NR (16:30)
[2020-12-20] MEDS ORDERED: LORAZEPAM 2MG/ML CPJ IV NR (16:30)
[2020-12-20 20:39] VITALS: BP 120/67
[2020-12-20] MEDS: SERTRALINE HCL 100MG TABLET PO SCH (20:58)
[2020-12-20] MEDS: OLANZAPINE 5MG TABLET PO SCH (20:58)
[2020-12-21] VITALS (7 sets, daily range): BP systolic 105–140; BP diastolic 52–78
[2020-12-21] MEDS ORDERED: LORAZEPAM 2MG/ML CPJ IV SCH (07:45)
[2020-12-21] MEDS: LEVETIRACETAM 250MG TABLET PO SCH ×2 (08:12→20:46)
[2020-12-21] MEDS: DIVALPROEX SODIUM 500MG DR TABLET PO SCH ×2 (08:12→17:08)
[2020-12-21] MEDS: GABAPENTIN 300MG CAPSULE PO SCH ×3 (08:12→17:07)
[2020-12-21] MEDS ORDERED: HYDROCODONE/ACETAMINOPHEN 10/325MG TABLET PO PRN (09:00)
[2020-12-21] MEDS: DIPHENHYDRAMINE 50MG/ML VIAL IV PRN (10:20)
[2020-12-21] MEDS: MORPHINE SULFATE 2 MG/ML CPJ (NOT FOR IM USE) IV PRN ×2 (17:08→21:38)
[2020-12-21] MEDS: OLANZAPINE 5MG TABLET PO SCH (20:46)
[2020-12-21] MEDS: SERTRALINE HCL 100MG TABLET PO SCH (20:46)
[2020-12-22] VITALS: BP 137/85
[2020-12-22] MEDS: MORPHINE SULFATE 2 MG/ML CPJ (NOT FOR IM USE) IV PRN ×4 (01:54→19:09)
[2020-12-22 04:00] VITALS: BP 118/67
[2020-12-22 08:00] VITALS: BP 78/51
[2020-12-22] MEDS: GABAPENTIN 300MG CAPSULE PO SCH ×3 (09:00→17:21)
[2020-12-22] MEDS: DIVALPROEX SODIUM 500MG DR TABLET PO SCH ×2 (09:00→17:21)
[2020-12-22] MEDS: LEVETIRACETAM 250MG TABLET PO SCH ×2 (09:00→20:00)
[2020-12-22 12:00] VITALS: BP 114/68
[2020-12-22 16:00] VITALS: BP 121/66
[2020-12-22 20:00] VITALS: BP 121/70
[2020-12-22] MEDS: OLANZAPINE 5MG TABLET PO SCH (20:00)
[2020-12-22] MEDS: SERTRALINE HCL 100MG TABLET PO SCH (20:00)
[2020-12-23] VITALS: BP 122/64
[2020-12-23] MEDS: MORPHINE SULFATE 2 MG/ML CPJ (NOT FOR IM USE) IV PRN ×5 (00:17→22:23)
[2020-12-23 04:00] VITALS: BP 115/69
[2020-12-23] MEDS: GABAPENTIN 300MG CAPSULE PO SCH ×3 (09:19→17:14)
[2020-12-23] MEDS: LEVETIRACETAM 250MG TABLET PO SCH ×2 (09:19→20:15)
[2020-12-23] MEDS: DIVALPROEX SODIUM 500MG DR TABLET PO SCH ×2 (09:19→17:14)
[2020-12-23 17:38] LABS: HEMATOCRIT. 38.3 % (42.0-52.0); LYMPHOCYTES % 44.4 % (20.0-50.0); MEAN CORPUSCULAR HEMOGLOBIN 31.5 pg (28.0-32.0); MEAN CORPUSCULAR VOLUME 93.1 fL (80.0-94.0); MEAN PLATELET VOLUME 9.5 fl (7.4-10.4); MONOCYTES % 13.5 % (2.0-8.0); NEUTROPHILS % 35.1 % (40.0-76.0); PLATELET 389 x1000/uL (130-400); RED BLOOD CELL COUNT 4.11 mill/uL (4.7-6.1); RED CELL DISTRIBUTION WIDTH 14.6 % (11.6-14.6)
[2020-12-23 17:48] LABS: CHLORIDE 108 mEq/L (98-107)
[2020-12-23 20:00] VITALS: BP 131/84
[2020-12-23] MEDS: SERTRALINE HCL 100MG TABLET PO SCH (20:15)
[2020-12-23] MEDS: OLANZAPINE 5MG TABLET PO SCH (20:15)
[2020-12-24] VITALS: BP 103/66
[2020-12-24 04:00] VITALS: BP 111/68
[2020-12-24 06:59] LABS: HEMATOCRIT. 36.9 % (42.0-52.0); HEMOGLOBIN. 12.2 g/dL (14.0-18.0); MEAN CORPUSCULAR HEMOGLOBIN 31.4 pg (28.0-32.0); MEAN CORPUSCULAR VOLUME 94.6 fL (80.0-94.0); MEAN PLATELET VOLUME 9.6 fl (7.4-10.4); PLATELET 375 x1000/uL (130-400); RED CELL DISTRIBUTION WIDTH 14.7 % (11.6-14.6)
[2020-12-24] MEDS: MORPHINE SULFATE 2 MG/ML CPJ (NOT FOR IM USE) IV PRN ×4 (07:03→21:36)
[2020-12-24 07:06] LABS: CHLORIDE 105 mEq/L (98-107)
[2020-12-24 08:00] VITALS: BP 117/68
[2020-12-24] MEDS: LEVETIRACETAM 250MG TABLET PO SCH ×2 (10:00→21:35)
[2020-12-24] MEDS: DIVALPROEX SODIUM 500MG DR TABLET PO SCH ×2 (10:00→16:17)
[2020-12-24] MEDS ORDERED: HYDROCODONE/ACETAMINOPHEN 10/325MG TABLET PO PRN (10:00)
[2020-12-24] MEDS: GABAPENTIN 300MG CAPSULE PO SCH ×3 (10:01→19:12)
[2020-12-24] MEDS ORDERED: NALOXONE HCL 0.4MG/ML VIAL IV PRN (10:15)
[2020-12-24 12:00] VITALS: BP 115/71
[2020-12-24 16:00] VITALS: BP 100/69
[2020-12-24 20:00] VITALS: BP 115/72
[2020-12-24] MEDS: OLANZAPINE 5MG TABLET PO SCH (21:35)
[2020-12-24] MEDS: SERTRALINE HCL 100MG TABLET PO SCH (21:35)
[2020-12-24 23:29] LABS: PLATELET ESTIMATE NORMAL
[2020-12-25] VITALS: BP 110/69
[2020-12-25 04:00] VITALS: BP 116/66
[2020-12-25 07:09] LABS: BASOPHILS % 0.2 % (0.0-2.0); EOSINOPHILS % 7.4 % (0.0-5.0); HEMATOCRIT. 35.7 % (42.0-52.0); HEMOGLOBIN. 12.2 g/dL (14.0-18.0); LYMPHOCYTES % 47.6 % (20.0-50.0); MEAN CORPUSCULAR HEMOGLOBIN 31.5 pg (28.0-32.0); MEAN CORPUSCULAR VOLUME 92.5 fL (80.0-94.0); MEAN PLATELET VOLUME 8.8 fl (7.4-10.4); MONOCYTES % 12.9 % (2.0-8.0); NEUTROPHILS % 31.9 % (40.0-76.0); PLATELET 386 x1000/uL (130-400); RED BLOOD CELL COUNT 3.86 mill/uL (4.7-6.1); RED CELL DISTRIBUTION WIDTH 14.6 % (11.6-14.6)
[2020-12-25 07:17] LABS: CHLORIDE 106 mEq/L (98-107)
[2020-12-25 08:00] VITALS: BP 120/84
[2020-12-25] MEDS: GABAPENTIN 300MG CAPSULE PO SCH ×3 (08:53→17:03)
[2020-12-25] MEDS: DIVALPROEX SODIUM 500MG DR TABLET PO SCH ×2 (08:53→17:03)
[2020-12-25] MEDS: MORPHINE SULFATE 2 MG/ML CPJ (NOT FOR IM USE) IV PRN ×4 (08:53→23:37)
[2020-12-25] MEDS: LEVETIRACETAM 250MG TABLET PO SCH ×2 (08:53→21:08)
[2020-12-25 12:00] VITALS: BP 110/66
[2020-12-25 16:00] VITALS: BP 122/78
[2020-12-25 16:05] LABS: T4 FREE 0.75 ng/dL (0.76-1.46)
[2020-12-25 20:00] VITALS: BP 110/66
[2020-12-25] MEDS: SERTRALINE HCL 100MG TABLET PO SCH (21:08)
[2020-12-25] MEDS: OLANZAPINE 5MG TABLET PO SCH (21:08)
[2020-12-26] VITALS: BP 159/102
[2020-12-26 04:00] VITALS: BP 123/75
[2020-12-26 08:00] VITALS: BP 123/81
[2020-12-26] MEDS: DIVALPROEX SODIUM 500MG DR TABLET PO SCH ×2 (08:18→17:27)
[2020-12-26] MEDS: LEVETIRACETAM 250MG TABLET PO SCH ×2 (08:18→22:04)
[2020-12-26] MEDS: GABAPENTIN 300MG CAPSULE PO SCH ×3 (08:18→17:27)
[2020-12-26] MEDS: MORPHINE SULFATE 2 MG/ML CPJ (NOT FOR IM USE) IV PRN ×4 (08:19→21:53)
[2020-12-26 12:00] VITALS: BP 116/70
[2020-12-26] MEDS: LEVOTHYROXINE SODIUM 50MCG TABLET PO SCH (13:12)
[2020-12-26 16:00] VITALS: BP 138/90
[2020-12-26 20:00] VITALS: BP 141/86
[2020-12-26] MEDS: SERTRALINE HCL 100MG TABLET PO SCH (22:03)
[2020-12-26] MEDS: OLANZAPINE 5MG TABLET PO SCH (22:05)
[2020-12-27] VITALS: BP 143/84
[2020-12-27 04:00] VITALS: BP 133/79
[2020-12-27 08:00] VITALS: BP 119/73
[2020-12-27] MEDS: MORPHINE SULFATE 2 MG/ML CPJ (NOT FOR IM USE) IV PRN ×4 (08:25→22:48)
[2020-12-27] MEDS: LEVOTHYROXINE SODIUM 50MCG TABLET PO SCH (08:37)
[2020-12-27] MEDS: GABAPENTIN 300MG CAPSULE PO SCH ×2 (08:37→18:27)
[2020-12-27] MEDS: LEVETIRACETAM 250MG TABLET PO SCH ×2 (08:37→21:53)
[2020-12-27] MEDS: DIVALPROEX SODIUM 500MG DR TABLET PO SCH ×2 (08:37→18:27)
[2020-12-27 12:00] VITALS: BP 123/84
[2020-12-27] MEDS ORDERED: BACITRACIN 15GM TUBE TOP ONE ×2 (12:40→16:30)
[2020-12-27] MEDS ORDERED: POLYMYXIN B SULFATE 500000 UNITS/VIAL ONE ×2 (12:41→12:57)
[2020-12-27] MEDS ORDERED: BUPIVACAINE HCL/PF 0.5% (5MG/ML) 10ML ONE (12:41)
[2020-12-27] MEDS ORDERED: LIDOCAINE HCL 1% 10 MG/ML 10ML VIAL ONE (12:57)
[2020-12-27] MEDS ORDERED: LORAZEPAM 2MG/ML CPJ IV PRN (14:45)
[2020-12-27 16:00] VITALS: BP 119/82
[2020-12-27] MEDS ORDERED: MIDAZOLAM HCL 2 MG/2 ML VIAL ONE (16:02)
[2020-12-27] MEDS ORDERED: CEFAZOLIN SODIUM 1000MG/VIAL ONE (16:11)
[2020-12-27] MEDS ORDERED: PROPOFOL 200MG/20ML VIAL IV ONE (16:11)
[2020-12-27] MEDS ORDERED: LIDOCAINE HCL 2% JELLY 5ML ONE (16:30)
[2020-12-27 20:00] VITALS: BP 112/79
[2020-12-27] MEDS: SERTRALINE HCL 100MG TABLET PO SCH (21:53)
[2020-12-27] MEDS: OLANZAPINE 5MG TABLET PO SCH (21:53)
[2020-12-28] VITALS: BP 125/82
[2020-12-28] MEDS: MORPHINE SULFATE 2 MG/ML CPJ (NOT FOR IM USE) IV PRN ×5 (03:36→21:03)
[2020-12-28 04:00] VITALS: BP 129/79
[2020-12-28] MEDS: LEVOTHYROXINE SODIUM 50MCG TABLET PO SCH ×2 (06:49→08:34)
[2020-12-28 08:00] VITALS: BP 120/74
[2020-12-28] MEDS: GABAPENTIN 300MG CAPSULE PO SCH ×4 (08:33→17:38)
[2020-12-28] MEDS: DIVALPROEX SODIUM 500MG DR TABLET PO SCH ×2 (08:33→08:37)
[2020-12-28] MEDS: LEVETIRACETAM 250MG TABLET PO SCH ×2 (08:35→21:02)
[2020-12-28 12:00] VITALS: BP 111/72
[2020-12-28 16:00] VITALS: BP 101/77
[2020-12-28 20:00] VITALS: BP 134/67
[2020-12-28] MEDS: SERTRALINE HCL 100MG TABLET PO SCH (21:02)
[2020-12-28] MEDS: OLANZAPINE 5MG TABLET PO SCH (21:02)
[2020-12-29] VITALS: BP 117/75
[2020-12-29] MEDS: MORPHINE SULFATE 2 MG/ML CPJ (NOT FOR IM USE) IV PRN ×5 (00:44→23:59)
[2020-12-29 04:00] VITALS: BP 130/81
[2020-12-29 08:00] VITALS: BP 126/76
[2020-12-29 08:46] LABS: CHLORIDE 111 mEq/L (98-107)
[2020-12-29] MEDS: DIVALPROEX SODIUM 500MG DR TABLET PO SCH ×2 (09:31→17:45)
[2020-12-29] MEDS: GABAPENTIN 300MG CAPSULE PO SCH ×3 (09:31→17:45)
[2020-12-29] MEDS: LEVETIRACETAM 250MG TABLET PO SCH ×2 (09:34→21:49)
[2020-12-29] MEDS: CEFEPIME 2,000 MG in DEXT 5% WATER 100 ML IV SCH ×2 (11:45→18:44)
[2020-12-29 12:00] VITALS: BP 128/60
[2020-12-29 20:00] VITALS: BP 143/91
[2020-12-29] MEDS: OLANZAPINE 5MG TABLET PO SCH (21:49)
[2020-12-29] MEDS: SERTRALINE HCL 100MG TABLET PO SCH (21:49)
[2020-12-30] VITALS: BP 136/87
[2020-12-30] MEDS: CEFEPIME 2,000 MG in DEXT 5% WATER 100 ML IV SCH (01:27)
[2020-12-30 04:00] VITALS: BP 110/78
[2020-12-30] MEDS: LEVOTHYROXINE SODIUM 50MCG TABLET PO SCH (07:02)
[2020-12-30 08:00] VITALS: BP 109/67
[2020-12-30] MEDS: DIVALPROEX SODIUM 500MG DR TABLET PO SCH ×2 (10:01→17:57)
[2020-12-30] MEDS: GABAPENTIN 300MG CAPSULE PO SCH ×3 (10:02→17:57)
[2020-12-30] MEDS: LEVETIRACETAM 250MG TABLET PO SCH ×2 (10:02→20:57)
[2020-12-30] MEDS: MORPHINE SULFATE 2 MG/ML CPJ (NOT FOR IM USE) IV PRN ×3 (10:03→20:58)
[2020-12-30 12:00] VITALS: BP 107/65
[2020-12-30] MEDS: MEROPENEM 1,000 MG in SODIUM CHLORIDE 0.9% 100 ML IV SCH ×2 (15:25→21:01)
[2020-12-30 16:00] VITALS: BP 112/79
[2020-12-30 20:00] VITALS: BP 136/87
[2020-12-30] MEDS: SERTRALINE HCL 100MG TABLET PO SCH (20:57)
[2020-12-30] MEDS: OLANZAPINE 5MG TABLET PO SCH (20:57)
[2020-12-31] VITALS: BP 99/67
[2020-12-31] MEDS: MORPHINE SULFATE 2 MG/ML CPJ (NOT FOR IM USE) IV PRN ×5 (02:37→22:39)
[2020-12-31 04:00] VITALS: BP 108/66
[2020-12-31] MEDS: MEROPENEM 1,000 MG in SODIUM CHLORIDE 0.9% 100 ML IV SCH ×3 (06:23→21:25)
[2020-12-31] MEDS: LEVOTHYROXINE SODIUM 50MCG TABLET PO SCH (06:23)
[2020-12-31 08:00] VITALS: BP 106/67
[2020-12-31] MEDS: GABAPENTIN 300MG CAPSULE PO SCH ×3 (08:31→16:10)
[2020-12-31] MEDS: DIVALPROEX SODIUM 500MG DR TABLET PO SCH ×2 (08:31→16:10)
[2020-12-31] MEDS: LEVETIRACETAM 250MG TABLET PO SCH ×2 (08:32→21:25)
[2020-12-31 12:00] VITALS: BP 113/84
[2020-12-31 20:00] VITALS: BP 138/98
[2020-12-31] MEDS: OLANZAPINE 5MG TABLET PO SCH (21:25)
[2020-12-31] MEDS: SERTRALINE HCL 100MG TABLET PO SCH (21:25)
[2021-01-01] VITALS: BP 123/69
[2021-01-01] MEDS: MORPHINE SULFATE 2 MG/ML CPJ (NOT FOR IM USE) IV PRN ×5 (02:33→21:54)
[2021-01-01 04:00] VITALS: BP 114/68
[2021-01-01] MEDS: MEROPENEM 1,000 MG in SODIUM CHLORIDE 0.9% 100 ML IV SCH ×3 (06:28→21:54)
[2021-01-01] MEDS: LEVOTHYROXINE SODIUM 50MCG TABLET PO SCH (06:28)
[2021-01-01 07:51] VITALS: BP 102/56
[2021-01-01] MEDS: LEVETIRACETAM 250MG TABLET PO SCH ×2 (08:36→20:20)
[2021-01-01] MEDS: DIVALPROEX SODIUM 500MG DR TABLET PO SCH ×2 (08:36→17:49)
[2021-01-01] MEDS: GABAPENTIN 300MG CAPSULE PO SCH ×3 (08:36→17:49)
[2021-01-01 12:00] VITALS: BP 104/65
[2021-01-01 16:00] VITALS: BP 97/63
[2021-01-01 20:00] VITALS: BP 136/78
[2021-01-01] MEDS: SERTRALINE HCL 100MG TABLET PO SCH (20:20)
[2021-01-01] MEDS: OLANZAPINE 5MG TABLET PO SCH (20:20)
[2021-01-02] VITALS: BP 107/68
[2021-01-02 04:00] VITALS: BP_SYST 99; BP_DIAS 57; BP_DIAS 7
[2021-01-02] MEDS: MEROPENEM 1,000 MG in SODIUM CHLORIDE 0.9% 100 ML IV SCH ×3 (06:43→21:51)
[2021-01-02] MEDS: LEVETIRACETAM 250MG TABLET PO SCH ×2 (08:06→20:03)
[2021-01-02] MEDS: GABAPENTIN 300MG CAPSULE PO SCH ×3 (08:06→17:21)
[2021-01-02] MEDS: LEVOTHYROXINE SODIUM 50MCG TABLET PO SCH (08:06)
[2021-01-02] MEDS: DIVALPROEX SODIUM 500MG DR TABLET PO SCH ×2 (08:06→17:21)
[2021-01-02] MEDS: MORPHINE SULFATE 2 MG/ML CPJ (NOT FOR IM USE) IV PRN ×4 (08:21→21:52)
[2021-01-02 08:27] VITALS: BP 132/89
[2021-01-02 12:00] VITALS: BP 127/81
[2021-01-02 16:00] VITALS: BP 100/67
[2021-01-02] MEDS ORDERED: HYDROCODONE/ACETAMINOPHEN 10/325MG TABLET PO PRN (18:30)
[2021-01-02 20:00] VITALS: BP 127/67
[2021-01-02] MEDS: OLANZAPINE 5MG TABLET PO SCH (21:51)
[2021-01-02] MEDS: SERTRALINE HCL 100MG TABLET PO SCH (21:51)
[2021-01-03] VITALS: BP 122/68
[2021-01-03 04:00] VITALS: BP 117/72
[2021-01-03] MEDS: MEROPENEM 1,000 MG in SODIUM CHLORIDE 0.9% 100 ML IV SCH ×3 (06:05→21:53)
[2021-01-03 08:00] VITALS: BP 117/74
[2021-01-03] MEDS: LEVOTHYROXINE SODIUM 50MCG TABLET PO SCH (09:09)
[2021-01-03] MEDS: GABAPENTIN 300MG CAPSULE PO SCH ×3 (09:09→17:53)
[2021-01-03] MEDS: LEVETIRACETAM 250MG TABLET PO SCH ×2 (09:09→21:53)
[2021-01-03] MEDS: DIVALPROEX SODIUM 500MG DR TABLET PO SCH ×2 (09:09→17:53)
[2021-01-03] MEDS: MORPHINE SULFATE 2 MG/ML CPJ (NOT FOR IM USE) IV PRN ×4 (09:11→22:04)
[2021-01-03 12:00] VITALS: BP 145/85
[2021-01-03 16:10] VITALS: BP 102/75
[2021-01-03 20:27] VITALS: BP 137/78
[2021-01-03] MEDS: OLANZAPINE 5MG TABLET PO SCH (21:53)
[2021-01-03] MEDS: SERTRALINE HCL 100MG TABLET PO SCH (21:53)
[2021-01-04] VITALS (7 sets, daily range): BP systolic 100–142; BP diastolic 51–92
[2021-01-04] MEDS: MEROPENEM 1,000 MG in SODIUM CHLORIDE 0.9% 100 ML IV SCH ×2 (06:43→13:32)
[2021-01-04] MEDS: LEVOTHYROXINE SODIUM 50MCG TABLET PO SCH (06:43)
[2021-01-04] MEDS: MORPHINE SULFATE 2 MG/ML CPJ (NOT FOR IM USE) IV PRN ×2 (06:44→11:38)
[2021-01-04] MEDS: LEVETIRACETAM 250MG TABLET PO SCH (09:55)
[2021-01-04] MEDS: DIVALPROEX SODIUM 500MG DR TABLET PO SCH ×2 (09:55→18:42)
[2021-01-04] MEDS: GABAPENTIN 300MG CAPSULE PO SCH ×3 (09:55→18:42)
[2021-01-04] MEDS ORDERED: NALO4SPR BOTHNSTRLS (12:49)
[2021-01-04] MEDS ORDERED: HYDR-4001 MT (12:49)
[2021-01-04] MEDS ORDERED: LEVO50TA8 PO (12:49)
== END 2021-01-04 21:14 | disposition home health service (06) | DRG 383 ==
LOC: ER 19:35 → 6EST 12-11 06:18 → ENRESERV 12-11 08:25 → 6EST 12-12 09:53
PROVIDERS: ADMIT Internal Medicine; ATTEND Internal Medicine
PROC: 02HV33Z Insertion of Infusion Device into Superior Vena Cava, Percutaneous Approach (ICD-10-PCS; 2020-12-13)
PROC: B548ZZA Ultrasonography of Superior Vena Cava, Guidance (ICD-10-PCS; 2020-12-13)
PROC: B5181ZA Fluoroscopy of Superior Vena Cava using Low Osmolar Contrast, Guidance (ICD-10-PCS; 2020-12-13)
PROC: 0JBN0ZZ Excision of Right Lower Leg Subcutaneous Tissue and Fascia, Open Approach (ICD-10-PCS; principal; 2020-12-27)
DX: L03.115 Cellulitis of right lower limb (principal); L97.919 Non-pressure chronic ulcer of unspecified part of right lower leg with unspecified severity; G40.909 Epilepsy, unspecified, not intractable, without status epilepticus; M79.605 Pain in left leg; B96.5 Pseudomonas (aeruginosa) (mallei) (pseudomallei) as the cause of diseases classified elsewhere; W18.39XA Other fall on same level, initial encounter; E03.9 Hypothyroidism, unspecified; E78.1 Pure hyperglyceridemia; R62.50 Unspecified lack of expected normal physiological development in childhood; F17.210 Nicotine dependence, cigarettes, uncomplicated; F79 Unspecified intellectual disabilities; Z20.822 Contact with and (suspected) exposure to COVID-19; Z82.49 Family history of ischemic heart disease and other diseases of the circulatory system; Y93.89 Activity, other specified; Y92.098 Other place in other non-institutional residence as the place of occurrence of the external cause; Y99.8 Other external cause status; Z79.899 Other long term (current) drug therapy; Z88.8 Allergy status to other drugs, medicaments and biological substances; Z76.5 Malingerer [conscious simulation]
CPT/HCPCS: 36415; 36573; 71045; 73610; 80048; 80053; 80061; 80165; 80202; 80320; 83605; 84145; 84439; 84443; 84481; 85025; 85651; 86141; 87070; 87075; 87077; 87186; 87426; 93005; 93970; 99285; C1725; C1893; J0690; J0692; J1200; J1630; J1885; J2060; J2185; J2250; J2270; J2405; J2543; J2704; J3370; J3490; J7030; J7040; J7050; J7060; A4315; G0480

== ENCOUNTER 2021-02-09 12:13 | Emergency (ER) | payer OTHER ==
[~2021-02-09] VITALS: Ht 188 cm; Wt 125.0 kg
[~2021-02-09 12:13] MED LIST changes: +CA C1TAB90 PO; +LEVO50TA8 PO; +NALO4SPR BOTHNSTRLS; -T3 PO; -[UNRECOGNIZED DRUG - OTHER] PO
[2021-02-09 12:31] VITALS: BP 126/78
== END 2021-02-09 20:43 | disposition left against medical advice (07) ==
LOC: ER 12:13
DX: L97.918 Non-pressure chronic ulcer of unspecified part of right lower leg with other specified severity (principal); F79 Unspecified intellectual disabilities

== ENCOUNTER 2021-05-07 06:20 | Inpatient (IN) | payer MEDICAID, OTHER ==
[~2021-05-07] VITALS: Ht 185.4 cm; Wt 120.7 kg
[2021-05-07] MEDS ORDERED: MORPHINE SULFATE 4 MG/ML CPJ (NOT FOR IM USE) IV STA (06:44)
[2021-05-07] MEDS ORDERED: ONDANSETRON HCL 4MG/2ML INJ IV STA (06:44)
[2021-05-07] MEDS ORDERED: SODIUM CHLORIDE 0.9% 1,000 ML IV ONE (06:45)
[2021-05-07] MEDS ORDERED: AMPICILLIN SOD/SULBACTAM NA 3 G in SODIUM CHLORIDE 0.9% 100 ML IV SCH (06:45)
[2021-05-07 08:36] LABS: BASOPHILS % 0.2 % (0.0-2.0); EOSINOPHILS % 4.3 % (0.0-5.0); HEMATOCRIT. 38.8 % (42.0-52.0); HEMOGLOBIN. 13.1 g/dL (14.0-18.0); LYMPHOCYTES % 37.9 % (20.0-50.0); MEAN CORPUSCULAR HEMOGLOBIN 30.9 pg (28.0-32.0); MEAN CORPUSCULAR VOLUME 91.5 fL (80.0-94.0); MEAN PLATELET VOLUME 8.6 fl (7.4-10.4); MONOCYTES % 11.5 % (2.0-8.0); NEUTROPHILS % 46.1 % (40.0-76.0); PLATELET 330 x1000/uL (130-400); RED BLOOD CELL COUNT 4.24 mill/uL (4.7-6.1); RED CELL DISTRIBUTION WIDTH 16.5 % (11.6-14.6)
[2021-05-07 08:43] LABS: CHLORIDE 107 mEq/L (98-107)
[2021-05-07] MEDS: MEROPENEM 1,000 MG in SODIUM CHLORIDE 0.9% 100 ML IV SCH ×2 (13:50→22:00)
[2021-05-07] MEDS ORDERED: ACETAMINOPHEN 325MG TABLET PO PRN (14:30)
[2021-05-07] MEDS ORDERED: ONDANSETRON HCL 4MG/2ML INJ IV PRN (14:30)
[2021-05-07] MEDS ORDERED: DIVALPROEX SODIUM 500MG DR TABLET PO SCH (15:00)
[2021-05-07] MEDS ORDERED: GABAPENTIN 300MG CAPSULE PO SCH (15:00)
[2021-05-07] MEDS: LEVOTHYROXINE SODIUM 50MCG TABLET PO SCH (15:47)
[2021-05-07 20:30] VITALS: BP 130/82
[2021-05-07] MEDS ORDERED: LEVETIRACETAM 500MG/5ML CUP PO SCH (21:00)
[2021-05-07] MEDS ORDERED: NALOXONE HCL 0.4MG/ML VIAL IV PRN (22:30)
[2021-05-08] MEDS: GABAPENTIN 300MG CAPSULE PO SCH ×4 (00:08→17:35)
[2021-05-08] MEDS: LEVETIRACETAM 500MG/5ML CUP PO SCH ×2 (00:09→12:06)
[2021-05-08] MEDS: DIVALPROEX SODIUM 500MG DR TABLET PO SCH ×3 (00:09→17:35)
[2021-05-08] MEDS: HYDROCODONE/ACETAMINOPHEN 10/325MG TABLET PO PRN ×3 (00:51→20:52)
[2021-05-08] MEDS: MEROPENEM 1,000 MG in SODIUM CHLORIDE 0.9% 100 ML IV SCH ×3 (06:00→22:31)
[2021-05-08] MEDS: LEVOTHYROXINE SODIUM 50MCG TABLET PO SCH (06:52)
[2021-05-08 08:00] VITALS: BP 114/69
[2021-05-08] MEDS ORDERED: LIDOCAINE HCL 1% 10 MG/ML 10ML VIAL ONE (08:22)
[2021-05-08] MEDS ORDERED: LORAZEPAM 1MG TABLET PO NR (10:30)
[2021-05-08 12:00] VITALS: BP 141/77
[2021-05-08] MEDS: MORPHINE SULFATE 2 MG/ML CPJ (NOT FOR IM USE) IV PRN ×2 (12:07→17:36)
[2021-05-08 16:00] VITALS: BP 120/72
[2021-05-08] MEDS ORDERED: OLAN5TAB74 MT (17:15)
[2021-05-08] MEDS ORDERED: SERT-112 MT (17:15)
[2021-05-08 20:00] VITALS: BP 104/68
[2021-05-08] MEDS: LEVETIRACETAM 500MG TABLET PO SCH (20:51)
[2021-05-09 04:00] VITALS: BP 108/69
[2021-05-09] MEDS: MEROPENEM 1,000 MG in SODIUM CHLORIDE 0.9% 100 ML IV SCH ×3 (05:06→20:45)
[2021-05-09] MEDS: MORPHINE SULFATE 2 MG/ML CPJ (NOT FOR IM USE) IV PRN ×3 (05:16→19:02)
[2021-05-09] MEDS: LEVOTHYROXINE SODIUM 50MCG TABLET PO SCH (06:40)
[2021-05-09 08:00] VITALS: BP 121/57
[2021-05-09] MEDS: LEVETIRACETAM 500MG TABLET PO SCH ×2 (08:20→20:45)
[2021-05-09] MEDS: HYDROCODONE/ACETAMINOPHEN 10/325MG TABLET PO PRN ×3 (08:21→17:17)
[2021-05-09] MEDS: GABAPENTIN 300MG CAPSULE PO SCH ×3 (08:21→17:17)
[2021-05-09] MEDS: DIVALPROEX SODIUM 500MG DR TABLET PO SCH ×2 (08:21→17:24)
[2021-05-09 12:00] VITALS: BP 119/65
[2021-05-09 16:00] VITALS: BP 118/59
[2021-05-09 20:00] VITALS: BP 142/92
[2021-05-09] MEDS ORDERED: LORAZEPAM 2MG/ML CPJ IV NR (20:15)
[2021-05-09] MEDS ORDERED: SERTRALINE HCL 100MG TABLET PO SCH (20:30)
[2021-05-09] MEDS: OLANZAPINE 5MG TABLET PO SCH (20:46)
[2021-05-09 21:12] LABS: BASOPHILS % 0.2 % (0.0-2.0); EOSINOPHILS % 2.1 % (0.0-5.0); HEMATOCRIT. 44.1 % (42.0-52.0); HEMOGLOBIN. 14.6 g/dL (14.0-18.0); MEAN CORPUSCULAR HEMOGLOBIN 30.3 pg (28.0-32.0); MEAN CORPUSCULAR VOLUME 91.5 fL (80.0-94.0); MEAN PLATELET VOLUME 8.7 fl (7.4-10.4); NEUTROPHILS % 47.7 % (40.0-76.0); PLATELET 325 x1000/uL (130-400); RED BLOOD CELL COUNT 4.82 mill/uL (4.7-6.1); RED CELL DISTRIBUTION WIDTH 16.9 % (11.6-14.6)
[2021-05-09 21:18] LABS: CHLORIDE 105 mEq/L (98-107)
[2021-05-10 04:00] VITALS: BP 102/61
[2021-05-10] MEDS: MEROPENEM 1,000 MG in SODIUM CHLORIDE 0.9% 100 ML IV SCH ×3 (05:59→21:29)
[2021-05-10 08:00] VITALS: BP 125/77
[2021-05-10] MEDS: OLANZAPINE 5MG TABLET PO SCH (08:39)
[2021-05-10] MEDS: GABAPENTIN 300MG CAPSULE PO SCH ×3 (08:39→17:43)
[2021-05-10] MEDS: DIVALPROEX SODIUM 500MG DR TABLET PO SCH ×2 (08:39→17:43)
[2021-05-10] MEDS: LEVOTHYROXINE SODIUM 50MCG TABLET PO SCH (08:39)
[2021-05-10] MEDS: LEVETIRACETAM 500MG TABLET PO SCH ×2 (08:40→20:13)
[2021-05-10] MEDS: MORPHINE SULFATE 2 MG/ML CPJ (NOT FOR IM USE) IV PRN ×3 (08:50→22:03)
[2021-05-10 12:00] VITALS: BP 122/64
[2021-05-10] MEDS ORDERED: SERTRALINE HCL 100MG TABLET PO SCH (12:00)
[2021-05-10] MEDS ORDERED: SERTRALINE HCL 50MG TABLET PO NR (12:00)
[2021-05-10] MEDS ORDERED: OLAN5TAB74 PO (12:44)
[2021-05-10] MEDS ORDERED: SERT100T PO (12:44)
[2021-05-10] MEDS ORDERED: GABA-532 PO (12:44)
[2021-05-10] MEDS ORDERED: DIVA-18 PO (12:44)
[2021-05-10] MEDS ORDERED: LEVO50TA8 PO (12:44)
[2021-05-10] MEDS ORDERED: LEVO500T89 MT (12:46)
[2021-05-10 16:00] VITALS: BP 143/88
[2021-05-10 17:02] VITALS: BP 143/88
[2021-05-10 20:00] VITALS: BP_SYST 116; BP_SYST 119; BP_DIAS 58; BP_DIAS 74
[2021-05-11] VITALS: BP 116/58
[2021-05-11 04:00] VITALS: BP 116/69
[2021-05-11] MEDS: MEROPENEM 1,000 MG in SODIUM CHLORIDE 0.9% 100 ML IV SCH (05:04)
[2021-05-11 08:00] VITALS: BP 116/59
[2021-05-11] MEDS: GABAPENTIN 300MG CAPSULE PO SCH ×2 (08:35→12:37)
[2021-05-11] MEDS: LEVETIRACETAM 500MG TABLET PO SCH (08:35)
[2021-05-11] MEDS: OLANZAPINE 5MG TABLET PO SCH (08:36)
[2021-05-11] MEDS: LEVOTHYROXINE SODIUM 50MCG TABLET PO SCH (08:36)
[2021-05-11] MEDS: DIVALPROEX SODIUM 500MG DR TABLET PO SCH (08:36)
[2021-05-11] MEDS ORDERED: SERTRALINE HCL 100MG TABLET PO NR (09:00)
[2021-05-11] MEDS: HYDROCODONE/ACETAMINOPHEN 10/325MG TABLET PO PRN (09:30)
[2021-05-11 10:33] VITALS: BP 116/59
[2021-05-11 12:00] VITALS: BP 116/71
== END 2021-05-11 14:49 | disposition home or self-care (01) | DRG 383 ==
LOC: ER 06:30 → 6EST 12:55 → ENRESERV 19:35 → 6EST 20:20
PROVIDERS: ADMIT Family Medicine; ATTEND Family Medicine
PROC: 05H533Z Insertion of Infusion Device into Right Subclavian Vein, Percutaneous Approach (ICD-10-PCS; principal; 2021-05-08)
PROC: B546ZZA Ultrasonography of Right Subclavian Vein, Guidance (ICD-10-PCS; 2021-05-08)
DX: L03.115 Cellulitis of right lower limb (principal); L97.919 Non-pressure chronic ulcer of unspecified part of right lower leg with unspecified severity; S81.801A Unspecified open wound, right lower leg, initial encounter; G40.909 Epilepsy, unspecified, not intractable, without status epilepticus; D64.9 Anemia, unspecified; F79 Unspecified intellectual disabilities; I87.8 Other specified disorders of veins; F12.90 Cannabis use, unspecified, uncomplicated; B96.5 Pseudomonas (aeruginosa) (mallei) (pseudomallei) as the cause of diseases classified elsewhere; X58.XXXA Exposure to other specified factors, initial encounter; Z90.81 Acquired absence of spleen; Z82.49 Family history of ischemic heart disease and other diseases of the circulatory system; Z88.8 Allergy status to other drugs, medicaments and biological substances; Y93.89 Activity, other specified; Y92.89 Other specified places as the place of occurrence of the external cause; Y99.8 Other external cause status
CPT/HCPCS: 36415; 71045; 73590; 73630; 76937; 80053; 83036; 84145; 85025; 87070; 87077; 87186; 99285; C1725; C1769; J0295; J2060; J2185; J2270; J2405; J3490; J7030; J7040; J7050

== ENCOUNTER 2022-10-20 10:20 | Emergency (ER) | payer MEDICAID ==
[~2022-10-20] VITALS: Ht 185.4 cm; Wt 118.0 kg
[~2022-10-20 10:20] MED LIST changes: +AMOX1TAB16 MT; -CA C1TAB90 PO; +DIVA-18 PO; -DIVA-75 MT; -GABA-532 MT; +GABA-532 PO; -LEVE750T4 MT; +OLAN10TA72 PO; -OLAN2.5T29 MT; +OLAN5TAB74 PO; -SERT-112 MT; +SERT100T PO
[2022-10-20 10:22] VITALS: TEMP 98.6; O2SAT 99
[2022-10-20 10:44] VITALS: BP 111/73; PULSE 79; RESP 16
[2022-10-20] MEDS ORDERED: KETOROLAC 60MG/2ML VIAL IM STA (10:44)
[2022-10-20] MEDS ORDERED: NAPR-681 PO (11:50)
== END 2022-10-20 12:24 | disposition home or self-care (01) ==
LOC: ER 10:34
DX: M54.9 Dorsalgia, unspecified (principal); Z88.2 Allergy status to sulfonamides; Z86.59 Personal history of other mental and behavioral disorders
CPT/HCPCS: 99283; 71046; 96372; J1885

== ENCOUNTER 2022-11-02 08:21 | Emergency (ER) | payer MEDICAID ==
[~2022-11-02] VITALS: Ht 172.7 cm; Wt 91.0 kg
[~2022-11-02 08:21] MED LIST changes: +NAPR-681 PO
[2022-11-02 08:29] VITALS: TEMP 98.3; O2SAT 96
[2022-11-02 09:45] VITALS: BP 116/72; PULSE 77; RESP 16
[2022-11-02] MEDS ORDERED: IBUPROFEN 400MG TABLET PO NR (09:45)
== END 2022-11-02 12:37 | disposition home or self-care (01) ==
LOC: ER 08:21
DX: G89.29 Other chronic pain (principal); M54.9 Dorsalgia, unspecified; Z88.2 Allergy status to sulfonamides; Z79.899 Other long term (current) drug therapy; Z98.890 Other specified postprocedural states; Z86.59 Personal history of other mental and behavioral disorders
CPT/HCPCS: 99283; Z7610 ×2

== ENCOUNTER 2022-12-26 22:55 | Emergency (ER) | payer MEDICAID ==
[~2022-12-26] VITALS: Ht 180.3 cm; Wt 82.0 kg
[2022-12-26 23:00] VITALS: BP 111/73; O2SAT 99
[2022-12-26] MEDS ORDERED: NAPROXEN 250MG TABLET PO ONE (23:00)
[2022-12-27] MEDS ORDERED: NAPR-420 MT (01:24)
[2022-12-27 01:49] VITALS: PULSE 81; RESP 18; TEMP 98.5
== END 2022-12-27 01:57 | disposition home or self-care (01) ==
LOC: ER 22:55
DX: L97.919 Non-pressure chronic ulcer of unspecified part of right lower leg with unspecified severity (principal); M25.561 Pain in right knee; G40.909 Epilepsy, unspecified, not intractable, without status epilepticus; F20.9 Schizophrenia, unspecified; Z98.890 Other specified postprocedural states
CPT/HCPCS: 73562; 93971; 99284

== ENCOUNTER 2023-02-22 06:11 | Emergency (ER) | payer MEDICAID ==
[~2023-02-22] VITALS: Ht 188 cm; Wt 118.0 kg
[~2023-02-22 06:11] MED LIST changes: +NAPR-420 MT
[2023-02-22] MEDS ORDERED: CYCL10TA21 MT (06:18)
[2023-02-22 06:49] VITALS: BP 133/81; PULSE 66; RESP 16; TEMP 98.1; O2SAT 99
== END 2023-02-22 08:00 | disposition home or self-care (01) ==
LOC: ER 06:11
DX: M54.9 Dorsalgia, unspecified (principal); Z88.8 Allergy status to other drugs, medicaments and biological substances; Z98.890 Other specified postprocedural states; Z79.899 Other long term (current) drug therapy; Z86.59 Personal history of other mental and behavioral disorders
CPT/HCPCS: 99283